=== PATIENT | female | born 1950 | race Caucasian/White ===

== ENCOUNTER 2022-06-21 12:07 | Emergency (ER) | payer MEDICARE, BC, SELFPAY ==
[2022-06-21 12:15] VITALS: BP 165/86; PULSE 59; RESP 16; TEMP 36.4; O2SAT 98
--- NOTE | 2022-06-21 12:25 | ED.WOUNDLAC ---
HPI - Wound/Laceration General Chief Complaint: Wound/Laceration Stated Complaint: fall, knee lac Time Seen by Provider: 06/21/22 12:19 History of Present Illness HPI narrative: 72-year-old female presented the emergency room for evaluation of a laceration to her right knee. States today she was attempting to calm down her 2 dogs that were overexcited, when she tripped over one of them causing her to strike her knee on the ground. Patient suffered a laceration to the right knee. States her tetanus is up-to-date. Denies being on any blood thinners. Patient was ambulatory following the injury. Related Data Allergies Allergy/AdvReac Type Severity Reaction Status Date / Time No Known Allergies Allergy Unverified 02/07/19 18:20 Review of Systems Review of Systems: CONSTITUTIONAL: Denies fever, chills, or sweats. EYES: Denies visual changes, redness, or discharge. ENT: Denies rhinorrhea, congestion, sore throat, or otalgia. CARDIOVASCULAR: Denies chest pain, palpitations, or edema. RESPIRATORY: Denies cough or dyspnea. GASTROINTESTINAL: Denies abdominal pain, nausea, vomiting, or diarrhea. GENITOURINARY: Denies dysuria or hematuria. SKIN: Reports laceration to left knee MUSCULOSKELETAL: Denies back pain, joint pain, or myalgia. NEUROLOGIC: Denies headache, numbness, dizziness, or weakness. PSYCHIATRIC: Denies anxiety or depression. Exam Narrative: GENERAL: Well-appearing, well-nourished, no physical limitations, and in no acute distress. HEAD: Normocephalic, atraumatic. EYES: Conjunctivae normal, PERRLA and EOMI. CHEST: Clear to auscultation. No respiratory distress. No wheezes rales or rhonchi. HEART: Regular rate and rhythm. No murmur heard. Normal peripheral pulses. EXTREMITIES: Normal range of motion. No edema. No clubbing or cyanosis SKIN: 3cm L-shaped laceration anterior surface of left knee NEURO: No focal deficits. Alert and oriented x3. MAEW. CN's II-XI intact bilaterally, normal gait PSYCH: Cooperative. Normal mood and affect. Course Vital Signs Vital signs: Vital Signs Temperature 36.4 C L 06/21/22 12:15 Pulse Rate 59 L 06/21/22 12:15 Respiratory Rate 16 06/21/22 12:15 Blood Pressure 165/86 H 06/21/22 12:15 Pulse Oximetry 98 06/21/22 12:15 Temperature 36.4 C L 06/21/22 12:15 Pulse Rate 59 L 06/21/22 12:15 Respiratory Rate 16 06/21/22 12:15 Blood Pressure 165/86 H 06/21/22 12:15 Pulse Oximetry 98 06/21/22 12:15 Procedures Laceration Laceration 1: Date: 06/21/22 Time: 13:30 Site: lower extremity Side (If applicable): right Size (cm): 3 Description: irregular Depth: simple, single layer Local Anesthetic: lidocaine 2% and with epi Amount of anesthesia used (mL): 6 Pre-repair: wound explored and irrigated ====== Skin Level ====== Skin layer closed with: nylon Size (cm): 4-0 Number of sutures: 7 Technique: simple, interrupted ====== Subcutaneous Layer ====== ====== Muscle Layer ====== ====== Tendon Layer ====== Discharge Plan Discharge Clinical Impression: Laceration of knee, right Patient Disposition: Home, Self-Care Condition: Stable Instructions: Antibiotic Form, Laceration (DC) Additional Instructions: You have 7 stitches. They come out in 10 to 14 days. Keep wound covered. Keep wound covered by Gigi bandage as well. Monitor for signs of infection which include redness, swelling, tenderness and purulent drainage. Follow-up/Referrals: Nik,Ciro Burkett MD [Primary Care Provider] - Time of Disposition: 13:32
[2022-06-21] MEDS: LIDO 2%/EPINEPHRINE 1:100,000 20 ML VIAL INFILTRATE (13:28)
[2022-06-21 13:51] VITALS: BP 200/80; PULSE 57; RESP 16; O2SAT 99
== END 2022-06-21 13:50 | disposition home or self-care (01) ==
PROVIDERS: Emergency Provider Nurse Practitioner Family; PCP Internal Medicine
DX: S81.011A Laceration without foreign body, right knee, initial encounter (principal); W01.0XXA Fall on same level from slipping, tripping and stumbling without subsequent striking against object, initial encounter
CPT/HCPCS: 12002; 99282